=== PATIENT | female | born 1990 | race Caucasian/White ===

== ENCOUNTER 2024-02-03 05:23 | Day surgery (SDC) | payer OTHER ==
[~2024-02-03] VITALS: Ht 147.3 cm; Wt 118.0 kg
[2024-02-03] VITALS (8 sets, daily range): BP systolic 129–138; BP diastolic 69–95; PULSE 77–93; TEMP 97–97.9
[2024-02-03] MEDS ORDERED: Famotidine 20 MG TAB PO SCH (06:00)
[2024-02-03] MEDS ORDERED: LR 1,000 ML IV SCH (06:00)
[2024-02-03] MEDS ORDERED: VENTOLIN0.09 MG IH (06:08)
[2024-02-03] MEDS ORDERED: Indocyanine Green 12.5 MG in Water For Injection,Sterile 2.5 ML IV ONE (06:15)
[2024-02-03] MEDS ORDERED: fentaNYL 50 MCG/ML 5 ML VIAL ONE (06:22)
[2024-02-03] MEDS ORDERED: Rocuronium 50 MG/5 ML Multi-Dose VIAL ONE (06:23)
[2024-02-03] MEDS ORDERED: Ondansetron 4 MG/2 ML VIAL ONE (06:24)
[2024-02-03] MEDS ORDERED: NS 10 ML IV ONE (06:24)
[2024-02-03] MEDS ORDERED: Lidocaine PF 2% (20 MG/ML) 5 ML VIAL ONE (06:24)
[2024-02-03] MEDS ORDERED: dexAMETHasone 10 MG/ML VIAL ONE (06:24)
[2024-02-03] MEDS ORDERED: Glycopyrrolate 0.2 MG/ML 1 ML VIAL ONE (06:24)
[2024-02-03] MEDS ORDERED: Ketorolac 30 MG/ML VIAL ONE (06:24)
[2024-02-03] MEDS ORDERED: Ondansetron 4 MG/2 ML VIAL IV PRN ×2 (07:00→09:00)
[2024-02-03] MEDS ORDERED: droPERidol 2.5 MG/ML 2 ML VIAL IV PRN (07:00)
[2024-02-03] MEDS ORDERED: fentaNYL 50 MCG/ML 1 ML SYRINGE/VIAL [PACU/SDC ONLY] IV PRN (07:00)
[2024-02-03] MEDS ORDERED: hydrALAZINE 20 MG/ML 1 ML VIAL IV PRN (07:00)
[2024-02-03] MEDS ORDERED: HYDROmorphone 1 MG/1 ML SYRINGE [PACU/SDC ONLY] IV PRN (07:00)
[2024-02-03] MEDS ORDERED: NORCO 325 MG-51 TAB PO (08:59)
[2024-02-03] MEDS ORDERED: Ibuprofen 600 MG TAB PO PRN (09:00)
--- NOTE | 2024-02-03 10:07 | NUR ---
0930: PT TO BAY 8 PER CART FROM PACU. REPORT RECEIVED FROM GREG SHI. VSS. BREATHING EVEN AND UNLABORED. 4 BANDAIDS TO ABDOMEN C/D/I. PT C/O NAUSEA. GREG SHI ADMINISTERED 4MG ZOFRAN IVP ORDERED. WILL NOT ADVANCE DIET AT THIS TIME. COOL WASH CLOTH APPLIED TO FOREHEAD. NO FURTHER NEEDS NOTED. RESTING IN COT. CALL LIGHT IN REACH. , SADIA, AT BEDSIDE.
--- NOTE | 2024-02-03 10:11 | NUR ---
0945: PT RESTING IN COT WITH EYES CLOSED. BREATHING EVEN AND UNLABORED. NO C/O PAIN OR NAUSEA AT THIS TIME. VSS. SP02 96% ON 2L O2 VIA NASAL CANNULA. NO FURTHER NEEDS NOTED. CALL LIGHT IN REACH. , SADIA, AT BEDSIDE.
--- NOTE | 2024-02-03 10:13 | NUR ---
1000: PT RESTING IN COT WITH EYES CLOSED. VSS. BREATHING EVEN AND UNLABORED. NO C/O PAIN OR NAUSEA AT THIS TIME. SPO2 96% ON 2L O2 VIA NASAL CANNULA. NO FURTHER NEEDS NOTED. RESTING IN COT. CALL LIGHT IN REACH. , SADIA, AT BEDSIDE.
--- NOTE | 2024-02-03 10:19 | NUR ---
1015: PT RESTING IN COT WITH EYES OPEN UPON THIS NURSE ENTERING THE ROOM. PT STATED SHE WAS IN SOME PAIN AND HER NAUSEA WAS BETTER. DOES NOT WISH TO ADVANCE DIET AT THIS TIME. VSS. BREATHING EVEN AND UNLABORED. NO FUTHER NEEDS NOTED AT THIS TIME. RESTING IN COT WITH EYES CLOSED. CALL LIGHT IN REACH. , SADIA, AT BEDSIDE.
--- NOTE | 2024-02-03 10:32 | NUR ---
1030: PT RESTING IN COT WITH EYES CLOSED. VSS. BREATHING EVEN AND UNLABORED. NO S/S OF NAUSEA OR PAIN. CALL LIGHT IN REACH. , SADIA, AT BEDSIDE.
--- NOTE | 2024-02-03 10:44 | NUR ---
1042: PT RESTING IN COT WITH EYES OPEN. DENIES NAUSEA. STATED SHE IS IN SOME PAIN. PT WISHING TO ADVANCE HER DIET. REQUESTING ICE CHIPS AND CRACKERS. RESTING IN COT. CALL LIGHT IN REACH. , SADIA, AT BEDSIDE.
--- NOTE | 2024-02-03 12:38 | NUR ---
1055: PT RESTING IN COT WITH EYES OPEN. PT TOLERATING CRACKERS AND WATER. PRN NORCO GIVEN ORDERED FOR PAIN. RESTING IN COT. CALL LIGHT IN REACH. , SAIDA, AT BEDSIDE.
--- NOTE | 2024-02-03 12:41 | NUR ---
1100: PT CONTINUES TO TOLERATE CRACKERS AND WATER. NO C/O NAUSEA. VSS. SPO2 92% ON ROOM AIR. NO FURTHER NEEDS NOTED. RESTING IN COT. CALL LIGHT IN REACH. , SADIA, AT BEDSIDE. 1120: IV DC'D AT THIS TIME. PT TO ASSIST WITH DRESSING. 1130: PT CAME OUT OF ROOM STATING PT "WAS BLEEDING" PT HAD SMALL AMOUNT OF BLOOD DRAINING FROM UMBILICUS INCISION. BLOOD CLEANED FROM SITE. NO FURTHER DRAINAGE NOTED. FOLDED 2X2 PLACED OVER INCISON AND SECURED WITH TAPE. EDUCATED PT AND THAT IF DRAINAGE WAS STEADY AND CONSISTANT THAN TO CONTACT DR. VILLEGAS'S OFFICE. PT AND STATED UNDERSTANDING. DISCHARGE INSTRUCTIONS COMPLETED AT THIS TIME. PT STATED UNDERSTANDING OF HOME AND FOLLOW-UP CARE. DISCHARGE PAPERWORK GIVEN TO PT. 1145: PT OFF UNIT PER WHEELCHAIR AT THIS TIME. PT DISCHARGED TO HOME WITH FAMILY PER PERSONAL VEHICLE.
== END 2024-02-03 11:45 | disposition home or self-care (01) ==
LOC: SDCO 05:23 → EDBD 07:30 → SDCO 07:30
DX: K80.10 Calculus of gallbladder with chronic cholecystitis without obstruction (principal); E66.01 Morbid (severe) obesity due to excess calories; Z68.43 Body mass index [BMI] 50.0-59.9, adult
CPT/HCPCS: J0690; J1100; J1885; J2405; J2704; J3010; J7120